=== PATIENT | female | born 1980 | race Caucasian/White ===

== ENCOUNTER 2017-08-14 13:36 | Emergency (ER) | payer OTHER ==
[2017-08-14 14:30] LABS: APPEARANCE,URINE SLIGHTLY-CLOUDY; BILIRUBIN,URINE NEGATIVE (NEGATIVE); COLOR,URINE YELLOW; GLUCOSE, URINE NEGATIVE (NEGATIVE); KETONES,URINE 20 mg/dL (NEGATIVE); LEUKOCYTE ESTERASE,URINE TRACE (NEGATIVE); NITRITE,URINE NEGATIVE (NEGATIVE); PROTEIN,URINE NEGATIVE (NEGATIVE); URINE SPECIFIC GRAVITY 1.013; UROBILINOGEN,URINE NEGATIVE mg/dL (<2.0)
[2017-08-14 14:32] LABS: ABSOLUTE BASOPHILS # (AUTO) 0.1 10^3/uL (0.0-0.2); ABSOLUTE EOSINOPHILS # (AUTO) 0.1 10^3/uL (0.0-0.6); ABSOLUTE LYMPHOCYTES (AUTO) 1.9 10^3/uL (0.5-4.7); ABSOLUTE MONOCYTES (AUTO) 0.7 10^3/uL (0.1-1.4); ABSOLUTE NEUT (AUTO) 5.6 10^3/uL (1.7-8.2); BASOPHILS % (AUTO) 1.4 % (0-2); EOSINOPHILS % (AUTO) 0.6 % (0-6); HEMATOCRIT 39.1 % (36.0-47.0); HEMOGLOBIN 13.3 g/dL (12.0-15.5); LYMPHOCYTES % (AUTO) 22.6 % (13-45); MEAN CORPUSCULAR HEMOGLOBIN 29.7 pg (27.0-33.4); MEAN CORPUSCULAR VOLUME 87 fl (80-97); MONOCYTES % (AUTO) 8.5 % (3-13); PLATELET COUNT 358 10^3/uL (150-450); RED BLOOD COUNT 4.48 10^6/uL (3.72-5.28); RED CELL DISTRIBUTION WIDTH 12.9 % (11.5-14.0); SEGMENTED NEUTROPHILS % (AUTO) 66.9 % (42-78); TOTAL CELLS COUNTED % (AUTO) 100 %; WHITE BLOOD COUNT 8.3 10^3/uL (4.0-10.5)
[2017-08-14 14:41] LABS: URINE AMPHETAMINES SCREEN UNCONFIRMED POSITIVE; URINE BARBITURATES SCREEN NEGATIVE; URINE BENZODIAZEPINES SCREEN NEGATIVE; URINE COCAINE SCREEN NEGATIVE; URINE MARIJUANA (THC) SCREEN NEGATIVE; URINE METHADONE SCREEN NEGATIVE; URINE PHENCYCLIDINE SCREEN NEGATIVE
[2017-08-14 14:47] LABS: ALANINE AMINOTRANSFERASE 36 U/L (9-52); ALBUMIN 3.7 g/dL (3.5-5.0); ALKALINE PHOSPHATASE 61 U/L (38-126); ANION GAP 8 (5-19); ASPARTATE AMINO TRANSFERASE 22 U/L (14-36); BILIRUBIN,DIRECT 0.3 mg/dL (0.0-0.4); BILIRUBIN,TOTAL 0.8 mg/dL (0.2-1.3); BLOOD UREA NITROGEN 10 mg/dL (7-20); CALCIUM 9.3 mg/dL (8.4-10.2); CARBON DIOXIDE 27 mmol/L (22-30); CHLORIDE 105 mmol/L (98-107); GLUCOSE 142 mg/dL (75-110); SODIUM 139.7 mmol/L (137-145); TOTAL PROTEIN 6.4 g/dL (6.3-8.2)
[2017-08-14 14:48] LABS: ACETAMINOPHEN < 10 ug/mL (10-30); ALCOHOL < 10 mg/dL (NONE DETECTED); SALICYLATE < 1.0 mg/dL (2.0-20.0)
--- NOTE | 2017-08-14 15:14 | ER Document Report ---
ED Psych Disorder / Suicide - General Chief Complaint: Psych Problem Stated Complaint: SUICIDAL IDEATION Time Seen by Provider: 08/14/17 14:21 Notes: 37-year-old female [employer] here for suicidal ideation. Patient states that she has been struggling with depression for several years. 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 States that she felt overwhelmed so called the ambulance. Obviously has access to weapons. Denies any major life changes at this time other than just chronic stress she does with that work. 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 Has been on multiple medications for her depression. Denies ingestion of substances. Denies a plan at this time. Denies any other major issues. Patient recently remarried. 2 years into this marriage. Does have one child. One previous marriage. - HPI Patient complains to provider of: Suicidal ideation - Related Data Allergies/Adverse Reactions: No Known Allergies Allergy (Verified 08/14/17 14:03) Past Medical History - General Information source: Patient - Social History Smoking Status: Current Some Day Smoker Cigarette use (# per day): Yes Chew tobacco use (# tins/day): No Frequency of alcohol use: None Drug Abuse: None Lives with: Spouse/Significant other Family History: Reviewed & Not Pertinent Patient has suicidal ideation: Yes Patient has homicidal ideation: No Renal/ Medical History: Denies: Hx Peritoneal Dialysis Psychiatric Medical History: Reports: Hx Depression Past Surgical History: Reports: Hx Orthopedic Surgery Review of Systems - Review of Systems Constitutional: No symptoms reported. denies: Fever, Malaise, Weakness EENT: No symptoms reported. denies: Double vision, Ear pain, Throat swelling, Mouth pain Cardiovascular: No symptoms reported. denies: Chest pain, Palpitations, Heart racing Respiratory: No symptoms reported. denies: Cough, Hurts to breathe, Short of breath, Wheezing Gastrointestinal: No symptoms reported. denies: Abdominal pain, Diarrhea, Nausea, Vomiting Genitourinary: No symptoms reported. denies: Burning, Dysuria, Discharge Female Genitourinary: No symptoms reported Musculoskeletal: No symptoms reported. denies: Back pain, Gout, Joint pain Skin: No symptoms reported Hematologic/Lymphatic: No symptoms reported. denies: Blood clots, Easy bleeding , Easy bruising Neurological/Psychological: No symptoms reported, Depression, Suicidal ideation Physical Exam - Vital signs Vitals: Temp Pulse Resp BP Pulse Ox 98.0 F 87 17 137/73 H 97 08/14/17 14:00 08/14/17 14:00 08/14/17 14:00 08/14/17 14:00 08/14/17 14:00 Interpretation: Normal - General General appearance: Appears well, Alert - HEENT Head: Normocephalic, Atraumatic Eyes: Normal Pupils: PERRL - Respiratory Respiratory status: No respiratory distress Chest status: Nontender Breath sounds: Normal Chest palpation: Normal - Cardiovascular Rhythm: Regular Heart sounds: Normal auscultation Murmur: No - Abdominal Inspection: Normal Distension: No distension Bowel sounds: Normal Tenderness: Nontender Organomegaly: No organomegaly - Back Back: Normal, Nontender - Extremities General upper extremity: Normal inspection, Nontender, Normal color, Normal ROM , Normal temperature General lower extremity: Normal inspection, Nontender, Normal color, Normal ROM , Normal temperature, Normal weight bearing. No: Abdulaziz's sign - Neurological Neuro grossly intact: Yes Cognition: Normal Orientation: AAOx4 [place] Coma Scale Eye Opening: Spontaneous Ivanna Coma Scale Verbal: Oriented Ivanna Coma Scale Motor: Obeys Commands Ivanna Coma Scale Total: 15 Speech: Normal Motor strength normal: LUE, RUE, LLE, RLE Sensory: Normal - Psychological Associated symptoms: Normal affect, Normal mood - Skin Skin Temperature: Warm Skin Moisture: Dry Skin Color: Normal Course - Re-evaluation Re-evalutation: 08/14/17 15:13 Due to the fact the patient is active duty . Will attempt to transfer to [place] for alpha at this time. Mental health is aware. Will arrange for transport at this time. 08/14/17 17:02 She has been accepted as a transfer. Commander Dante excepting as a direct admit to 4A at [facility] [place] - Vital Signs Vital signs: Temp Pulse Resp BP Pulse Ox 98.0 F 87 17 137/73 H 97 08/14/17 14:00 08/14/17 14:00 08/14/17 14:00 08/14/17 14:00 08/14/17 14:00 - Laboratory Result Diagrams: 08/14/17 14:15 08/14/17 14:15 Laboratory results interpreted by me: 08/14/17 08/14/17 14:00 14:15 Glucose 142 H Urine Ketones 20 H Urine Blood MODERATE H Ur Leukocyte Esterase TRACE H Salicylates < 1.0 L Acetaminophen < 10 L - EKG Interpretation by Me EKG shows normal: Sinus rhythm, Garner, Intervals, QRS Complexes, ST-T Waves Discharge - Discharge Clinical Impression: Suicidal ideation Major depressive disorder Qualifiers: Major depression recurrence: single episode Active/Remission status: currently active Major depression episode severity: moderate Qualified Code(s): F32.1 - Major depressive disorder, single episode, moderate Condition: Good
--- NOTE | 2017-08-14 15:35 | PSYCHOLOGICAL NOTE ---
Psych Note - Psych Note Psych Note: Reason for consult: Suicidal Ideation Time of Evaluation 1400 Final Disposition 1440 Contact Permissions: Umm Li; and Patient is a 37-year-old female. Patient reports suicidal ideation with intent and plan. Patient reports she had a pistol on her table and was going to commit suicide today. Patient reports that she still has suicidal ideation and wants to follow through with her plan. Patient reports she was face timing her who was in [place] and told her that she was going to commit suicide with the gun in sight on the table. Patient reports her then contacted their friend Umm (phone #[phone]) then came to their home took the pistol from patient and called EMS. Patient reports she has been feeling this way for 2 days. Patient reports she was diagnosed with anxiety, depression, and PTSD. Patient reports 6 months ago she went to a psychologist for therapy, but it was unhelpful for her PTSD diagnosis. Patient reports she was prescribed Prozac 80 mg daily and Vyvanse 40 mg daily at [address] [place] [address] [facility] [place]. Patient reports that she is tired of waking up and feeling this way. Patient reports that she felt the care [place] health [place] is not helpful , as symptoms are minimized to the "milligram game" [ fixing through the problem through medication only]. Patient reports she served 19 years in the [employer] and is 10 months from assisted. Patient stated "served the [employer]. all my life, and now this dealing with feeling like this". Clinician observed patient is tearful, flat affect, linear and goal oriented thinking. Diagnosis: Per HX 311 ( F32.9) Unspecified Depressive Disorder Per HX 300.00 ( 41.9) Unspecified Anxiety Disorder Per Hx 309.81 ( F43.10) Posttraumatic stress Disorder Impression/Plan: Recommendation for patient to be involuntary committed due to patient meeting criteria [place] GS 122C . Patient reports SI with intent and plan, Patient is at risk for harm to self. Due to patient being an active duty member in the [employer]. Clinician coordinated care with [place] transfer call center to transfer patient to [facility] [address] Cardona regarding the management and care of patient.
[2017-08-14 18:24] VITALS: BP 127/86
--- NOTE | 2017-08-14 22:10 | EKG REPORT ---
SEVERITY:- NORMAL ECG - SINUS RHYTHM : Confirmed by: Nguyen Andrews 14-Aug-2017 22:08:34
== END 2017-08-14 19:00 ==
LOC: ER 13:36
DX: F32.1 Major depressive disorder, single episode, moderate (principal); F17.210 Nicotine dependence, cigarettes, uncomplicated
CPT/HCPCS: 36415; 80053; 80307; 81001; 81025; 85025; 87086; 93005; 93010; 99285